=== PATIENT | male | born 1990 | race Caucasian/White ===

== ENCOUNTER 2020-10-15 14:23 | Outpatient (REF) | payer MEDICAID, SELFPAY | END 2020-10-15 14:24 | disposition home or self-care (01) | LOC: HO.LAB 14:23 | PROVIDERS: Visit Provider Internal Medicine | DX: Z20.828 Contact with and (suspected) exposure to other viral communicable diseases (principal) | CPT/HCPCS: C9803; U0003 ==

== ENCOUNTER 2021-02-02 12:24 | Outpatient (REF) | payer MEDICAID, SELFPAY ==
--- NOTE | ~2021-02-02 | XR_ITS ---
EXAMINATION: XR FOOT, LEFT CLINICAL INFORMATION: Pain in left foot COMPARISON: None TECHNIQUE: AP, lateral, and oblique views of the left foot. FINDINGS: There is no fracture or dislocation. Alignment is anatomic. Joint spaces are maintained. The soft tissues are unremarkable. No ankle joint effusion. XR/XR foot LT min 3V IMPRESSION: Normal left foot.
== END 2021-02-02 12:25 | disposition home or self-care (01) ==
LOC: HO.XRAY 12:24
PROVIDERS: PCP Nurse Practitioner; Visit Provider Emergency Medicine
DX: M79.672 Pain in left foot (principal)
CPT/HCPCS: 73630

== ENCOUNTER 2023-11-17 13:30 | Emergency (ER) | payer MEDICAID, SELFPAY ==
--- NOTE | ~2023-11-17 | XR_ITS ---
EXAMINATION: XR chest 2V CLINICAL INFORMATION: Chest pain COMPARISON: No prior chest x-ray available in our system for comparison at the time of this dictation. TECHNIQUE: XR chest 2V, 2 Views Lungs and Nandini: Both lungs are clear. Pleura: Normal. Costophrenic angles are sharp. No pneumothorax. Heart: The heart is normal in size. Mediastinum: The mediastinum is within normal limits.. Bones: Skeletal structures included are normal for patient's age. XR/XR chest 2V IMPRESSION: No radiographic evidence of acute cardiopulmonary disease.
--- NOTE | 2023-11-17 13:31 | ECG_ITS ---
Test Reason : CP Blood Pressure : / mmHG Vent. Rate : 070 BPM Atrial Rate : 074 BPM P-R Int : 136 ms QRS Dur : 080 ms QT Int : 370 ms P-R-T Axes : 049 086 024 degrees QTc Int : 399 ms Normal sinus rhythm Normal ECG No previous ECGs available Referred By: Maya Lynn Electronically Signed By:KEREN WATKINS
[2023-11-17 13:45] VITALS: BP 147/89; PULSE 71; RESP 19; TEMP 37.3; O2SAT 100; BMI 25.1
--- NOTE | 2023-11-17 13:46 | ED.GENADULT ---
HPI - General Adult General Chief complaint: General Medical Stated complaint: chest pain sent from urgent care Time Seen by Provider: 11/17/23 14:28 Source: patient Mode of arrival: ambulatory Limitations: no limitations History of Present Illness HPI narrative: 33-year-old male with a history of seizure disorder, ADHD, juvenile asthma presents the ER with complaints of intermittent chest pain for the last 3 months. Patient reports the chest pain may occur at work or at rest and may occur with deep breathing and movement. It is described as sharp and stabbing. It is left-sided and radiates to the left arm and the left back with shortness of breath. There is no associated diaphoresis, vomiting, fevers, chills, recent URI symptoms. Patient reports he smokes cigarettes occasionally. Denies substance or alcohol use. No recent travel or sick contact. No family history of sudden cardiac or blood clots. Patient reports he has not seen a primary care doctor. He does have an appointment to see his primary care in November. Related Data Allergies Allergy/AdvReac Type Severity Reaction Status Date / Time No Known Allergies Allergy Verified 11/17/23 13:31 Review of Systems Review of Systems: Yes all other systems are reviewed and are negative Constitutional: Constitutional: Reports no additional constitutional complaints, Denies body ache(s), Denies chills, Denies fever(s), Denies headache(s) and Denies weakness Eyes: Eyes: Reports no additional eye complaints and Denies change in vision ENT: Reports system reviewed and no additional complaints, except as documented, Denies dizziness, Denies headache(s), Denies nasal congestion, Denies nasal discharge and Denies neck pain Cardiovascular: Cardiovascular: Reports no additional cardiovascular complaints, Reports chest pain, Denies leg edema and Reports dyspnea Respiratory: Respiratory: Reports no additional respiratory complaints, Denies cough and Reports dyspnea Gastrointestinal: Gastrointestinal: Reports no additional gastrointestinal complaints, Denies abdominal pain, Denies diarrhea, Denies nausea and Denies vomiting Genitourinary: Genitourinary: Denies urinary incontinence Musculoskeletal: Musculoskeletal: Reports no additional musculoskeletal complaints, Denies back pain, Denies arthralgias, Denies joint swelling, Denies neck pain, Denies numbness, Reports radiating pain into limb and Denies tingling Integumentary/Breasts: Skin/Breast: Reports system reviewed and no additional complaints, except as docu and Denies rash Neurologic: Reports system reviewed and no additional complaints, except as documented, Denies Abnormal speech present, Denies dizziness, Denies headache(s), Denies numbness, Denies tingling and Denies weakness PMFSH Past Medical History Attestation statement: The following information was validated with the patient. Source: old records reviewed and nursing notes reviewed Onset Date is defined in the Problem List Problems that require an onset date and time if occurred within 24 hrs of arrival to the ED Aortic Dissection and Rupture; Neurologic impairment; Cardiopulmonary Arrest; Endotracheal Intubation; Insertion or Replacement of Mechanical Circulatory Assist Device Social History Social History Smoked in Last 30 Days: Yes Use of substances other than those prescribed or required for medical reasons: No Advance Directives: No Advance Directives Information Provided: No Physical Exam ED Vital Signs: Vital Signs - 24 hr 11/17/23 13:45 11/17/23 14:40 Temperature 99.1 F Pulse Rate 71 72 Respiratory Rate 19 16 Blood Pressure 147/89 H 147/88 H Pulse Oximetry 100 99 Oxygen Delivery Method Room Air Room Air BMI result Body Mass Index 25.1 Const General: cooperative, healthy appearing, comfortable and no acute distress Orientation/consciousness: patient oriented x3 Limitations: no limitations HENMT Head: Yes normal to inspection Ears: hearing grossly normal bilaterally General nose exam: Normal external nose present Face and sinus: Yes normal facial exam Mouth: Normal oral and palatal mucosa present Throat: Yes posterior oropharynx normal Eyes General: appearance normal, both eyes and all related structures Pupils: Equal, round and reactive pupils present Neck Neck: Yes normal visual inspection Chest Chest palpation & inspection: normal inspection of the chest Resp Effort & Inspection: normal respiratory effort Auscultation: clear to auscultation bilaterally Cardio Rate: regular rate Rhythm: regular rhythm Peripheral pulses: Peripheral pulses 2+ throughout GI Inspection: Yes normal to inspection Palpation (GI): Soft to palpation and nontender Auscultation: normal bowel sounds Back/Spine/Pelvis Thoracic/Lumbar Spine: thoracic and lumbar spine normal to inspection Skin General skin exam: no rashes or lesions noted Neuro General: patient oriented x3, no focal motor deficits and normal sensation to monofilament Cranial nerves: Yes Equal, round and reactive pupils present Cognition (Neuro): normal cognition Speech: No Abnormal speech present Gait exam (Neuro): Normal gait present Motor exam (neuro): 5/5 motor strength present throughout Extrem General: Yes normal to inspection, Yes no pedal edema and Yes no calf tenderness Course Course Course Narrative: This is a rapid medical exam: Additional HPI, ROS, PE not included below will be deferred to primary provider. Patient is a 33-year-old male with history of HTN presenting to the ED with complaint of intermittent chest pain for the past 3 months. Intermittent pain and tingling to left arm. Pain in back as well, worse with inspiration. States as he pushes himself to do more at work his pain increases. Seeing new PCP end of Nov, is not currently on any antihypertensives. Plan: EKG, labs, CXR Reevaluation(s) Reevaluation #1: Labs unremarkable. EKG is nonischemic. Chest x-ray shows no acute finding. Reviewed all of the workup with the patient. Recommend he follow up outpatient with his primary care doctor return to the ER for any worsening symptoms. Medical Decision Making Medical Decision Making MDM Narrative: 33-year-old male with a history of seizure disorder, ADHD, juvenile asthma presents the ER with complaints of intermittent chest pain for the last 3 months. Patient reports the chest pain may occur at work or at rest and may occur with deep breathing and movement. It is described as sharp and stabbing. It is left-sided and radiates to the left arm and the left back with shortness of breath. There is no associated diaphoresis, vomiting, fevers, chills, recent URI symptoms. Patient reports he smokes cigarettes occasionally. Denies substance or alcohol use. No recent travel or sick contact. No family history of sudden cardiac or blood clots. Patient reports he has not seen a primary care doctor. He does have an appointment to see his primary care in November. Vital signs stable. Exam is benign Will obtain EKG, chest x-ray, labs Differential Diagnosis Differential Diagnoses: The differential diagnosis associated with the presentation includes History of present illness is atypical for ACS-heart score 0 Perc 0 Low concern for aortic dissection with gradual onset Pneumonia, pneumothorax Admission/Observation Consideration of admission/observation: Escalation of care including admission/observation considered Heart score 0. I do not believe the patient needs admission and or urgent cardiology consultation Lab Data MDM Lab Attestation statement: I reviewed the patient's lab results. 11/17/23 13:59 11/17/23 13:59 Labs: Lab Results 11/17/23 Range/Units 13:59 WBC 4.7 L (4.8-10.8) X10*3/uL RBC 4.93 (4.60-5.80) X10*6/uL Hgb 15.2 (14.0-18.0) g/dl Hct 43.1 (42.0-52.0) % MCV 87.4 (80.0-98.0) fL MCH 30.8 (27.0-33.0) pg MCHC 35.3 (31.0-36.0) g/dl RDW 11.7 (11.0-16.0) % Plt Count 203 (160-400) X10*3/uL MPV 9.4 (9.4-12.4) fL Immature Gran % (Auto) 0.2 (0.0-0.4) % Neut % (Auto) 62.2 (45-73) % Lymph % (Auto) 27.3 (20-40) % [place] % (Auto) 8.1 (2-11) % Eos % (Auto) 1.3 (0-4) % Baso % (Auto) 0.9 (0-2) % Lymph # (Auto) 1.3 (1.2-4.9) X10*3/uL [place] # (Auto) 0.4 (0.1-1.2) X10*3/uL Eos # (Auto) 0.1 (0.0-0.4) X10*3/uL Baso # (Auto) 0.0 (0.0-0.2) X10*3/uL Abs Immat Gran (auto) 0.01 (0.00-0.03) X10*3/uL Absolute Neuts (auto) 2.9 (2.0-8.3) x10*3/uL Absolute Nucleated RBC 0.000 (0.0-0.012) X10*3/uL Nucleated RBC % (auto) 0.0 (0.0-0.2) /100WBC PT 12.7 (11.1-13.3) SEC INR 1.0 (0.9-1.1) Sodium 141 (135-145) mmol/L Potassium 4.4 (3.3-5.1) mmol/L Chloride 107 (96-108) mmol/L Carbon Dioxide 26 (22-29) mmol/L Anion Gap 12 (12-20) BUN 12 (9-16) mg/dL Creatinine 0.95 (0.5-1.4) mg/dL Estim Creat Clear Calc 109.0 Estimated GFR > 60 Random Glucose 101 (60-115) mg/dL Calcium 9.8 (8.4-10.2) mg/dL Total Bilirubin 0.3 (0.0-1.0) mg/dL AST 20 (5-37) U/L ALT 26 (0-40) U/L Alkaline Phosphatase 70 (39-117) U/L Troponin I High Sens < 2.7 (<3.5-35.0) ng/L Total Protein 7.4 (6.5-8.0) g/dL Albumin 4.3 (3.5-5.0) g/dL Independent Interpretation I performed an independent interpretation of an: EKG and Plain X-Ray Interpretation: I independently reviewed the EKG which shows normal sinus rhythm with a rate of 70, normal DE, normal QRS, normal QT I independently reviewed the chest x-ray and agree with the radiology report Radiology Impression Discussion of test interpretation with radiology: I have reviewed the radiologist's reading. Radiologist Impression: [place] [id number] XRay Report Signed Patient: Beni Lizama Jr MR#: [id number] : 1990 Acct:[id number] Age/Sex: 33 / M ADM Date: 11/17/23 Loc: .ED Attending Dr: Ordering Physician: Maya Lynn NP Date of Service: 11/17/23 Procedure(s): XR chest 2V Accession Number(s): [id number] cc: Physician,Unknown ; Maya Lynn NP~ EXAMINATION: XR chest 2V CLINICAL INFORMATION: Chest pain COMPARISON: No prior chest x-ray available in our system for comparison at the time of this dictation. TECHNIQUE: XR chest 2V, 2 Views Lungs and Nandini: Both lungs are clear. Pleura: Normal. Costophrenic angles are sharp. No pneumothorax. Heart: The heart is normal in size. Mediastinum: The mediastinum is within normal limits.. Bones: Skeletal structures included are normal for patient's age. XR/XR chest 2V IMPRESSION: No radiographic evidence of acute cardiopulmonary disease. Tests considered The following testing was considered but not selected: Perc score 0-no need for CTA Prescription Management I considered prescription management with: Pain Medication Discharge Plan Discharge Clinical Impression: Chest pain Patient Disposition: Home, Self-Care Instructions: Chest Pain (ED) Additional Instructions: Your lab work, EKG and chest x-ray are reassuring You may need additional outpatient testing and so it is important for you to follow-up with primary care doctor Please return for any worsening symptoms Referrals: Physician,Didi J [Primary Care Provider] - 1 week
[2023-11-17 14:03] LABS: MANUAL DIFF FLAG NO
[2023-11-17 14:05] LABS: Basophils Percent Auto 0.9 % (0-2); Eosinophils Absolute Auto 0.1 X10*3/uL (0.0-0.4); Eosinophils Percent Auto 1.3 % (0-4); Hematocrit 43.1 % (42.0-52.0); Hemoglobin 15.2 g/dl (14.0-18.0); Imm Gran Abs Auto 0.01 X10*3/uL (0.00-0.03); Imm Gran Pct Auto 0.2 % (0.0-0.4); Lymphocytes Absolute Auto 1.3 X10*3/uL (1.2-4.9); Lymphocytes Percent Auto 27.3 % (20-40); Mean Corpuscular HGB Conc 35.3 g/dl (31.0-36.0); Mean Corpuscular Hemoglobin 30.8 pg (27.0-33.0); Mean Corpuscular Volume 87.4 fL (80.0-98.0); Mean Platelet Volume 9.4 fL (9.4-12.4); Monocytes Absolute Auto 0.4 X10*3/uL (0.1-1.2); Monocytes Percent Auto 8.1 % (2-11); Neutrophils Absolute Auto 2.9 x10*3/uL (2.0-8.3); Neutrophils Percent Auto 62.2 % (45-73); Platelet Count 203 X10*3/uL (160-400); Red Blood Count 4.93 X10*6/uL (4.60-5.80); Red Cell Distribution Width 11.7 % (11.0-16.0); White Blood Count 4.7 X10*3/uL (4.8-10.8)
[2023-11-17 14:13] LABS: Prothrombin Time 12.7 SEC (11.1-13.3)
[2023-11-17 14:18] LABS: Alanine Aminotransferase 26 U/L (0-40); Albumin Level 4.3 g/dL (3.5-5.0); Alkaline Phosphatase 70 U/L (39-117); Anion Gap 12 (12-20); Aspartate Amino Transferase 20 U/L (5-37); Bilirubin Total 0.3 mg/dL (0.0-1.0); Blood Urea Nitrogen 12 mg/dL (9-16); Calcium 9.8 mg/dL (8.4-10.2); Carbon Dioxide 26 mmol/L (22-29); Chloride 107 mmol/L (96-108); Estimated Glomerular Filt Rate > 60; Glucose Random 101 mg/dL (60-115); Potassium 4.4 mmol/L (3.3-5.1); Sodium 141 mmol/L (135-145); Total Protein 7.4 g/dL (6.5-8.0)
[2023-11-17 14:26] LABS: Troponin-I High Sensitivity < 2.7 ng/L (<3.5-35.0)
[2023-11-17 14:40] VITALS: BP 147/88; PULSE 72; RESP 16; O2SAT 99
--- NOTE | 2023-11-17 15:35 | PC.NURSE ---
a&ox4, vss and up to date. pt presents to the ED w/ radiating left sided chest pain. pt states pain/numbness/tingling presents in the LUE as well as into his back. pt also c/o SOB w/ ambulation. no sob/wob noted at rest. lung sounds CTA. respirations even and unlabored. plan of care ongoing. call richter placed within reach.
== END 2023-11-17 16:39 | disposition home or self-care (01) ==
PROVIDERS: Registered Nurse Emergency; Emergency Provider Student in an Organized Health Care Education/Training Program
DX: R07.9 Chest pain, unspecified (principal)
CPT/HCPCS: 36415; 71046; 80053; 84484; 85025; 85610; 93005; 99283; 99284

== ENCOUNTER → 2023-11-17 13:31 | Outpatient (BNV) | payer MEDICAID, SELFPAY | PROVIDERS: Emergency Provider Student in an Organized Health Care Education/Training Program; Visit Provider Internal Medicine | DX: R07.9 Chest pain, unspecified (principal) | CPT/HCPCS: 93010 ==

== ENCOUNTER 2024-02-15 08:37 | Outpatient (REF) | payer MEDICAID, SELFPAY ==
[2024-02-15 11:54] LABS: Hematocrit 41.9 % (42.0-52.0); Hemoglobin 14.9 g/dl (14.0-18.0); Mean Corpuscular HGB Conc 35.6 g/dl (31.0-36.0); Mean Corpuscular Hemoglobin 31.8 pg (27.0-33.0); Mean Corpuscular Volume 89.3 fL (80.0-98.0); Mean Platelet Volume 10.3 fL (9.4-12.4); Platelet Count 199 X10*3/uL (160-400); Red Blood Count 4.69 X10*6/uL (4.60-5.80); Red Cell Distribution Width 11.5 % (11.0-16.0); White Blood Count 4.8 X10*3/uL (4.8-10.8)
[2024-02-15 12:40] LABS: Alanine Aminotransferase 36 U/L (0-40); Albumin Level 4.3 g/dL (3.5-5.0); Alkaline Phosphatase 61 U/L (39-117); Anion Gap 10 (12-20); Aspartate Amino Transferase 43 U/L (5-37); Bilirubin Total 0.5 mg/dL (0.0-1.0); Blood Urea Nitrogen 12 mg/dL (9-16); Carbon Dioxide 28 mmol/L (22-29); Chloride 107 mmol/L (96-108); Cholesterol 158 mg/dL (<200); Estimated Glomerular Filt Rate > 60; Glucose Random 86 mg/dL (60-115); HDL Cholesterol 51 mg/dL (>40); LDL Cholesterol Calculated 97 mg/dL (<100); Potassium 3.7 mmol/L (3.3-5.1); Sodium 141 mmol/L (135-145); Total Protein 7.1 g/dL (6.5-8.0); Triglycerides 50 mg/dL (<150)
[2024-02-15 12:51] LABS: HBc Num1 0.13 S/CO (0.00-0.79); Hepatitis B Core Antibody Nonreactive (Nonreactive)
[2024-02-15 12:58] LABS: TSH reflex Free T4 1.72 uIU/mL (0.32-4.0)
[2024-02-15 15:26] LABS: Estimated Average Glucose 97 mg/dL
[2024-02-15 20:12] LABS: Folate 10.9 ng/mL (> or = 4.0)
[2024-02-17 00:32] LABS: Vitamin B12 678 pg/mL (200-900)
== END 2024-02-15 08:38 | disposition home or self-care (01) ==
LOC: HO.HHCL 08:37
PROVIDERS: Visit Provider Student in an Organized Health Care Education/Training Program
DX: Z00.00 Encounter for general adult medical examination without abnormal findings (principal)
CPT/HCPCS: 36415; 80053; 80061; 82607; 82746; 83036; 84443; 85027; 86704

== ENCOUNTER 2025-10-01 07:06 | Emergency (ER) | payer OTHER, SELFPAY ==
[2025-10-01] VITALS (7 sets, daily range): BP systolic 111–144; BP diastolic 57–77; PULSE 68–110; RESP 12–18; TEMP 36.4–37.1; O2SAT 96–100; BMI 28.1
--- NOTE | 2025-10-01 07:16 | ED_ITS ---
HPI - Seizure General Chief Complaint: Seizure Stated Complaint: 2 SZ'S THIS AM,POST ICTAL @ THIS TIME Time Seen by Provider: 10/01/25 07:13 Source: patient Mode of arrival: EMS Limitations: no limitations History of Present Illness HPI Narrative: This is 34 years old male with history of epilepsy on Keppra and Tegretol was brought here by ambulance after he had 2 seizure at home, he arrived postictal but awake and alert. The seizure was witnessed by the girlfriend which is not here yet.He takes keppra 200 mg BID and tegretol 600 mg BID complaint: seizure Onset (ago): hour(s) (1) Description of Episode: tonic-clonic movement Witnessed: Yes - by Other (girfriend) Seizure History: Yes Place: Home Possible Precipitating Event: none Associated symptoms: denies other symptoms Related Data Allergies Allergy/AdvReac Type Severity Reaction Status Date / Time No Known Allergies Allergy Verified 10/01/25 07:38 Review of Systems 2 Review of Systems: Yes Other (postictal) [facility] Past Medical History Attestation statement: The following information was validated with the patient. [facility] Narrative: History of seizure disorder,ADHD Social History Social History (System 12/28/23 @ 12:05 by Lilibeth Joseph) Advance Directives: No Advance Directives Information Provided: Yes Physical Exam 2 Exam: Exam: Not acute distress Vital Signs: Vital Signs: Last Vital Signs Temp 98.6 F 10/01/25 10:48 Pulse 77 10/01/25 10:48 Resp 12 10/01/25 10:48 BP 126/77 10/01/25 10:48 Pulse Ox 99 10/01/25 10:48 O2 Del Method Room Air 10/01/25 10:20 BMI result Body Mass Index 28.1 Const: General: cooperative Nutritional Appearance: average body habitus Orientation/consciousness: patient oriented x3 HEENT: Head: Yes normal to inspection and Yes No palpable skull fracture present Ears: hearing grossly normal bilaterally General nose exam: Normal external nose present Face and sinus: Yes normal facial exam Mouth: other (small lac in the tongue) Throat: Yes posterior oropharynx normal Neck: Neck: Yes normal visual inspection Chest: Chest palpation & inspection: normal inspection of the chest Resp: Effort & Inspection: normal respiratory effort Auscultation: clear to auscultation bilaterally Cardio: Jugular venous distension: no JVD Rate: regular rate Rhythm: r egular rhythm GI: Inspection: Yes normal to inspection Palpation (GI): Soft to palpation, not firm, nontender and no guarding Skin: General skin exam: no rashes or lesions noted and elasticity normal L esions: no lesions Rashes: no rashes Trauma: no lacerations or abrasions Neuro: General: patient oriented x3 Extrem: General: Yes normal to inspection and Yes full ROM Right upper extremity: normal to inspection Course Reevaluation(s) Reevaluation #1: 07:47 remained stable mother at bedside Time: 07:48 Reevaluation #2: 10:30 remained seizure-free received extra Keppra IV, and Ativan p.o.. Was told not to drive for six-month to call the Neurologist today, he has a an established neurologist His initial metabolic acidosis as now resolved I repeated a basic profile his bicarb is normal Time: 10:30 Medications Administered Discontinued Medications Generic Name Dose Route Start Last Admin Trade Name Nathanq PRN Reason Stop Dose Admin Carbamazepine 600 mg 10/01/25 08:06 10/01/25 08:25 Carbamazepine 200 Mg Tablet PO 10/01/25 08:07 600 mg ONCE ONE Administration Sodium Chloride 1,000 mls @ 999 mls/hr 10/01/25 07:15 10/01/25 08:25 Ns IVCONT 10/01/25 08:15 Infused .Q1H1M JESSICA Infusion Levetiracetam 1,500 mg in 100 mls @ 400 mls/hr 10/01/25 07:14 10/01/25 07:45 Keppra IV 10/01/25 07:28 Infused ONCE ONE Infusion Sodium Chloride 1,000 mls @ 999 mls/hr 10/01/25 08:15 10/01/25 10:40 Ns IVCONT 10/01/25 09:15 Infused .Q1H1M JESSICA Infusion Lorazepam 1 mg 10/01/25 07:15 10/01/25 07:28 Lorazepam 1 Mg Tablet PO 10/01/25 07:16 1 mg ONCE ONE Administration Medical Decision Making Medical Decision Making MDM Narrative: Patient is here after seizure he has history of seizure we will check blood work extra dose of Keppra and reassess Differential Diagnosis Seizure disorder/convulsion Admission/Observation Consideration of admission/observation: Escalation of care including admission/observation considered Lab Data MDM Lab Attestation statement: I reviewed the patient's lab results. 10/01/25 07:24 10/01/25 08:47 Labs: Lab Results 10/01/25 10/01/25 Range/Units 07:24 08:47 WBC 8.3 (4.8-10.8) X10*3/uL RBC 4.98 (4.60-5.80) X10*6/uL Hgb 15.6 (14.0-18.0) g/dl Hct 44.6 (42.0-52.0) % MCV 89.6 (80.0-98.0) fL MCH 31.3 (27.0-33.0) pg MCHC 35.0 (31.0-36.0) g/dl RDW 11.3 (11.0-16.0) % Plt Count 226 (160-400) X10*3/uL MPV 9.5 (9.4-12.4) fL Immature Gran % (Auto) 0.6 H (0.0-0.4) % Neut % (Auto) 49.7 (45-73) % Lymph % (Auto) 35.3 (20-40) % [place] % (Auto) 10.9 (2-11) % Eos % (Auto) 2.8 (0-4) % Baso % (Auto) 0.7 (0-2) % Lymph # (Auto) 2.9 (1.2-4.9) X10*3/uL [place] # (Auto) 0.9 (0.1-1.2) X10*3/uL Eos # (Auto) 0.2 (0.0-0.4) X10*3/uL Baso # (Auto) 0.1 (0.0-0.2) X10*3/uL Abs Immat Gran (auto) 0.05 H (0.00-0.03) X10*3/uL Absolute Neuts (auto) 4.1 (2.0-8.3) x10*3/uL Absolute Nucleated RBC 0.000 (0.0-0.012) X10*3/uL Nucleated RBC % (auto) 0.0 (0.0-0.2) /100WBC Sodium 140 141 (135-145) mmol/L Potassium 3.9 4.0 (3.3-5.1) mmol/L Chloride 111 H 113 H (96-108) mmol/L Carbon Dioxide 12 L 24 (22-29) mmol/L Anion Gap 21 H 8 L (12-20) BUN 16 15 (9-16) mg/dL Creatinine 1.10 0.92 (0.5-1.4) mg/dL Estim Creat Clear Calc 108.1 129.3 Estimated GFR > 60 > 60 Random Glucose 139 H 83 (60-115) mg/dL Calcium 8.8 8.1 L D (8.4-10.2) mg/dL Magnesium 2.5 (1.6-2.6) mg/dL Total Bilirubin 0.3 (0.0-1.0) mg/dL AST 30 (5-37) U/L ALT 48 H (0-40) U/L Alkaline Phosphatase 78 (39-117) U/L Total Protein 7.4 (6.5-8.0) g/dL Albumin 4.7 (3.5-5.0) g/dL Carbamazepine 2.5 L* (5.0-12.0) mcg/mL Independent Historian Clinical information obtained from an independent historian. History obtained from or confirmed by: EMS EMS /mother Discharge Plan Discharge Clinical Impression: Generalized seizure Patient Disposition: Home, Self-Care Instructions: Recurrent Seizures in Adults (ED) Additional Instructions: Do not drive or operate machine for 6 Months, call your neurologist today and make an appointment, we sent a Keppra level we do not have the results yet text usually 2 days by your Tegretol level was low so make sure you take your medicine Stand Alone Forms: Work/School Release Interventions: ED Discharge Assessment Last Done: 10/01/25 10:48 Print Language: Cymraes
[2025-10-01 07:28] LABS: MANUAL DIFF FLAG NO
[2025-10-01] MEDS: levETIRAcetam in NaCl (iso-os) 1,500 MG/100 ML PIGGYBACK 400 MG IV (07:30)
[2025-10-01 07:31] LABS: Hematocrit 44.6 % (42.0-52.0); Hemoglobin 15.6 g/dl (14.0-18.0); Imm Gran Abs Auto 0.05 X10*3/uL (0.00-0.03); Imm Gran Pct Auto 0.6 % (0.0-0.4); Lymphocytes Absolute Auto 2.9 X10*3/uL (1.2-4.9); Mean Corpuscular HGB Conc 35.0 g/dl (31.0-36.0); Mean Corpuscular Hemoglobin 31.3 pg (27.0-33.0); Mean Corpuscular Volume 89.6 fL (80.0-98.0); NRBC Abs Auto 0.000 X10*3/uL (0.0-0.012); NRBC Pct Auto 0.0 /100WBC (0.0-0.2); Platelet Count 226 X10*3/uL (160-400); Red Blood Count 4.98 X10*6/uL (4.60-5.80); White Blood Count 8.3 X10*3/uL (4.8-10.8)
[2025-10-01 07:58] LABS: Carbamazepine Tegretol 2.5 mcg/mL (5.0-12.0)
[2025-10-01 08:03] LABS: Alanine Aminotransferase 48 U/L (0-40); Albumin Level 4.7 g/dL (3.5-5.0); Alkaline Phosphatase 78 U/L (39-117); Anion Gap 21 (12-20); Aspartate Amino Transferase 30 U/L (5-37); Blood Urea Nitrogen 16 mg/dL (9-16); Calcium 8.8 mg/dL (8.4-10.2); Carbon Dioxide 12 mmol/L (22-29); Chloride 111 mmol/L (96-108); Creatinine Clr Calc Pharmacy 108.1; Estimated Glomerular Filt Rate > 60; Magnesium 2.5 mg/dL (1.6-2.6); Potassium 3.9 mmol/L (3.3-5.1); Sodium 140 mmol/L (135-145); Total Protein 7.4 g/dL (6.5-8.0)
[2025-10-01 09:26] LABS: Anion Gap 8 (12-20); Blood Urea Nitrogen 15 mg/dL (9-16); Calcium 8.1 mg/dL (8.4-10.2); Carbon Dioxide 24 mmol/L (22-29); Chloride 113 mmol/L (96-108); Creatinine Clr Calc Pharmacy 129.3; Estimated Glomerular Filt Rate > 60; Potassium 4.0 mmol/L (3.3-5.1); Sodium 141 mmol/L (135-145)
[2025-10-04 12:58] LABS: Levetiracetam Keppra <2.0 mcg/mL (10.0-40.0)
== END 2025-10-01 11:11 | disposition home or self-care (01) ==
PROVIDERS: Emergency Provider Emergency Medicine; PCP Internal Medicine
DX: G40.909 Epilepsy, unspecified, not intractable, without status epilepticus (principal); F90.9 Attention-deficit hyperactivity disorder, unspecified type; R11.0 Nausea; Z79.899 Other long term (current) drug therapy
CPT/HCPCS: 36415; 80048; 80053; 80156; 80177; 83735; 85025; 96361; 96374; 99284; J1953